=== PATIENT | male | born 1995 | race Caucasian/White ===

== ENCOUNTER 2018-09-29 06:11 | Observation (INO) | payer OTHER ==
[2018-09-29] MEDS ORDERED: LACTATED RINGER'S 1,000 ML IV (07:00)
[2018-09-29] MEDS ORDERED: PROPOFOL 20 ML (07:52)
[2018-09-29] MEDS ORDERED: MEPERIDINE 100 MG INJ (07:52)
[2018-09-29] MEDS ORDERED: ROCURONIUM 50 MG INJ ×2 (07:52→08:00)
[2018-09-29] MEDS ORDERED: NEOSTIGMINE 3 MG/3 ML SYRINGE ×2 (07:52→08:00)
[2018-09-29] MEDS ORDERED: LIDOCAINE 2% (SDV) 5 ML INJ (07:52)
[2018-09-29] MEDS ORDERED: GLYCOPYRROLATE 0.4 MG INJ ×3 (07:52→08:00)
[2018-09-29] MEDS ORDERED: SUCCINYLCHOLINE CHLORIDE 100 MG/5 ML SYG IV (07:52)
[2018-09-29] MEDS: GELATIN SIZE 100 SPONGE (09:32)
[2018-09-29] MEDS: BUPIVACAINE 0.5%/EPI (SDV) 30 ML INJ (09:32)
[2018-09-29] MEDS: POLYMYXIN/BACITRACIN 1L IRRIG (09:33)
[2018-09-29] MEDS: THROMBIN 5000 UNIT (RECOTHROM) VIAL (09:33)
[2018-09-29] MEDS ORDERED: LABETALOL HCL 20MG INJ (10:15)
[2018-09-29] MEDS ORDERED: METOCLOPRAMIDE 10 MG INJ IV (12:00)
[2018-09-29] MEDS ORDERED: PROCHLORPERAZINE 10 MG TAB PO (12:00)
[2018-09-29] MEDS ORDERED: AL HYDROX/MG HYDROX/SIMETH 30 ML CUP PO (12:00)
[2018-09-29] MEDS ORDERED: MEPERIDINE 25 MG INJ IV (12:00)
[2018-09-29] MEDS ORDERED: DIPHENHYDRAMINE 50 MG INJ IV (12:00)
[2018-09-29] MEDS ORDERED: NACL 0.9% 3 ML SYG IV (12:00)
[2018-09-29] MEDS ORDERED: ACETAMINOPHEN 325 MG TAB PO (12:00)
[2018-09-29] MEDS ORDERED: CEFAZOLIN 1 GM/50 ML (PMX) 50 ML IVPB (12:00)
[2018-09-29] MEDS ORDERED: NALOXONE (0.4 MG/ML) INJ IV (12:00)
[2018-09-29] MEDS ORDERED: hydrALAzine 20 MG INJ IV (12:00)
[2018-09-29] MEDS ORDERED: HYDROmorphONE 1 MG/5 ML IV SYRINGE IV ×2 (12:00)
[2018-09-29] MEDS ORDERED: HYDROCODONE/APAP (5/325) TAB PO (12:00)
[2018-09-29] MEDS ORDERED: MIDAZOLAM 1 MG/ML 2 ML INJ IV (12:00)
[2018-09-29] MEDS ORDERED: FENTAnyl 50 MCG/ML VIAL IV ×2 (12:00)
[2018-09-29] MEDS ORDERED: LABETALOL HCL 20MG INJ IV (12:00)
[2018-09-29] MEDS ORDERED: EPHEDrine 25 MG/5 ML SYG IV (12:00)
[2018-09-29] MEDS ORDERED: ONDANSETRON 4 MG INJ IV (12:00)
[2018-09-29] MEDS: FENTAnyl 50 MCG/ML VIAL IV (13:03)
[2018-09-29] MEDS: HYDROmorphONE 1 MG/5 ML IV SYRINGE IV (13:04)
[2018-09-29] MEDS: ONDANSETRON 4 MG INJ IV (13:05)
[2018-09-29] MEDS ORDERED: HYDROmorphONE 0.2 MG/ML PCA (13:08)
[2018-09-29] MEDS: CEFAZOLIN 2 GM/50 ML (PMX) 50 ML IVPB (16:25)
[2018-09-29] MEDS: CEFAZOLIN 1 GM/50 ML (PMX) 50 ML IVPB ×2 (16:28→23:18)
[2018-09-29] MEDS: SOD CHLORIDE 0.9% 1,000 ML IV (16:28)
[2018-09-29] MEDS: HYDROmorphONE 0.5 MG/0.5 ML SYG IV ×2 (19:52→23:25)
[2018-09-29] MEDS: HYDROCODONE/APAP (5/325) TAB PO (20:29)
[2018-09-30] MEDS: HYDROCODONE/APAP (5/325) TAB PO ×3 (00:40→14:22)
[2018-09-30] MEDS: HYDROmorphONE 0.5 MG/0.5 ML SYG IV ×4 (03:53→16:22)
[2018-09-30 05:21] LABS: HEMOGLOBIN 11.9 g/dl (14.0-18.0)
[2018-09-30] MEDS: CEFAZOLIN 1 GM/50 ML (PMX) 50 ML IVPB ×2 (05:27→10:33)
[2018-09-30] MEDS: SOD CHLORIDE 0.9% 1,000 ML IV (05:31)
[2018-09-30 05:54] LABS: ANION GAP 8 (5-13); BLOOD UREA NITROGEN 9 mg/dl (7-20); CALCIUM 8.2 mg/dl (8.4-10.2); CARBON DIOXIDE 28 mmol/L (21-31); CHLORIDE 100 mmol/L (97-110); CREATININE 0.82 mg/dl (0.61-1.24); Estimated GFR > 60 mL/min (>60); GLUCOSE 104 mg/dl (70-220); POTASSIUM 3.9 mmol/L (3.5-5.1); SODIUM 136 mmol/L (135-144)
[2018-09-30] MEDS: DOCUSATE SODIUM 100 MG CAP PO (08:45)
[2018-09-30] MEDS: LISINOPRIL 10 MG TAB PO (08:45)
[2018-09-30] MEDS: FENOFIBRATE 145 MG TAB PO (08:45)
== END 2018-09-30 18:51 | disposition home or self-care (01) ==
LOC: SDS 06:11 → REC 11:58 → MS1 14:15
DX: M51.16 Intervertebral disc disorders with radiculopathy, lumbar region (principal); M51.17 Intervertebral disc disorders with radiculopathy, lumbosacral region; E66.01 Morbid (severe) obesity due to excess calories; Z68.37 Body mass index [BMI] 37.0-37.9, adult; I10 Essential (primary) hypertension; E78.5 Hyperlipidemia, unspecified
CPT/HCPCS: 63030; 72110; 80048; 85014; 85018; 88304; 97116; 97161; 97530